=== PATIENT | male | born 1960 | race Caucasian/White ===

== ENCOUNTER → 2018-07-07 | Outpatient (CLI) | payer BC ==
--- NOTE | 2018-07-07 22:34 | MR ---
EXAMINATION TYPE: MR knee LT wo con DATE OF EXAM: 07/07/2018 COMPARISON: NONE HISTORY: Lt knee pain, posterior x 2 mos per patient. Evaluate medial meniscal tear, synovial cyst, o steochondroma proximal fibula all per order. TECHNIQUE: Multiplanar, multisequence images of the knee is performed without IV contrast. FINDINGS: MEDIAL MENISCUS: Anterior horn is intact without tear. Globular central increased signal posterior ho rn is present, does not distinctly extend to articular surface. LATERAL MENISCUS: Anterior horn is intact without tear. Triangular shaped increased signal posterior horn extends to the inferior articular surface sagittal image 10 towards the central avascular zone. CRUCIATE LIGAMENTS: The anterior and posterior cruciate ligaments are intact and unremarkable. COLLATERAL LIGAMENTS: The medial collateral ligament and lateral collateral ligament complex are inta ct and unremarkable. EXTENSOR MECHANISM: Visualized quadriceps and patellar tendons are intact. EFFUSION: No significant suprapatellar joint effusion. POPLITEAL CYST: Small probable leaking popliteal/mackey cyst axial image 17. TRICOMPARTMENT SPACES: Fairly mild tricompartment joint space loss. No significant spurring is seen. CARTILAGE: Tricompartment articular cartilage is fairly well maintained. No significant chondromalaci a patella. BONE MARROW SIGNAL: No focal abnormal marrow signal is appreciated. No suspicious focal lesion proxim al fibula identified. OTHER: No additional significant abnormality is appreciated. IMPRESSION: 1. Intrasubstance tear posterior horn medial meniscus. 2. Full-thickness tear posterior horn of lateral meniscus. 3. Mild tricompartment degenerative changes. 4. Small leaking popliteal cyst.
== END | disposition home or self-care (01) ==
LOC: RADMRIMAIN 19:34
PROVIDERS: ATTEND Orthopaedic Surgery Sports Medicine
DX: S83.282A Other tear of lateral meniscus, current injury, left knee, initial encounter (principal); S83.242A Other tear of medial meniscus, current injury, left knee, initial encounter; M17.12 Unilateral primary osteoarthritis, left knee; M71.22 Synovial cyst of popliteal space [Baker], left knee